=== PATIENT | female | born 1985 | race Caucasian/White ===

== ENCOUNTER 2022-12-20 17:32 | Emergency (ER) | payer OTHER, SELFPAY ==
[2022-12-20] VITALS (18 sets, daily range): BP systolic 107–121; BP diastolic 61–80; PULSE 78–105; RESP 22; TEMP 36.3; O2SAT 96–100; BMI 26.0
--- NOTE | 2022-12-20 17:38 | ED_ITS ---
HPI - General Adult General Chief complaint: Anxiety Stated complaint: unconscious Time Seen by Provider: 12/20/22 17:37 History of Present Illness HPI narrative: This 36-year-old female comes in hyperventilating and anxious. She does not describe any pain but feels funny tingling sensations all over. She states that she was helping her son who was climbing a tree and got stung by some bees. She became very anxious at this time and is hyperventilating. She states that she has had episodes of anxiety or panic like this in the past but this 1 is worse than the others. She takes sertraline and states that she took an extra tablet thinking that would help her. She states that she took an extra dose in the past when she was having anxiety symptoms. She does not take any other medications. Related Data Home Medications Medication Instructions Recorded Confirmed cetirizine 10 mg tablet 10 mg PO DAILY PRN 12/20/22 12/20/22 levothyroxine PO DAILY 12/20/22 multivitamin (Daily Multi-Vitamin 1 tab PO DAILY 12/20/22 12/20/22 tablet) Previous Rx's Medication Instructions Recorded lorazepam 0.5 mg tablet (Ativan) 0.5 mg PO BID PRN #10 tabs 12/20/22 Allergies Allergy/AdvReac Type Severity Reaction Status Date / Time No Known Drug Allergies Allergy Verified 12/20/22 17:44 Review of Systems Status of ROS: Reports: 10 or more systems reviewed and unremarkable except as noted in History and below Narrative: Constitutional: No fevers, no weight gain or loss. Eyes: No discharge. No vision changes. HENT: No congestion, no sore throat, no ear pain. Cardiovascular: No chest pain, no palpitations. Respiratory: No shortness of breath, no wheezes, no cough. Gastrointestinal: No abdominal pain, no vomiting, no diarrhea. Genitourinary: No dysuria, no hematuria. Musculoskeletal: Normal range of motion. Skin: No rashes, no pruritis. Neurological: No dizziness, weakness, sensory change, speech change. Endo/Heme/Allergies: No bruising or bleeding. No polydipsia. Pysch: no suicidality, no insomnia. She is very anxious. All other systems reviewed and are negative. [facility] Medical History (Updated 12/20/22 @ 19:32 by Andrey Pugh MD) Hypothyroid ?E03.9 - Hypothyroidism, unspecified (ICD-10) Anxiety ?F41.9 - Anxiety disorder, unspecified (ICD-10) Social History Smoking Status: Never smoker Do you use any of these nicotine containing products: None How often do you have a drink containing alcohol: never How often do you have six or more drinks on one occasion: Never AUDIT-C Alcohol total score: 0 Non-prescribed substance use: denies use Exam Narrative: Exam Narrative: Constitutional: Well-developed, well-nourished, no acute distress. HEENT: Normocephalic, atraumatic. Neck: Normal range of motion. Nontender. Supple. Heart: Regular. No murmurs. Tachycardia at 105 beats per minute. Intact distal pulses. Lungs: Clear to auscultation. No chest discomfort. No wheezes, rhonchi, or rales. Hyperventilating due to anxiety. Abdomen: Normal bowel sounds. Nontender. No rebound tenderness. Genitalia: Deferred. Back: No midline tenderness. Normal range of motion. Extremities: Normal range of motion. No injury. Skin: Intact. No rash. Warm. No erythema or pallor. Neurologic: No altered sensation. No weakness. Alert and oriented. Psychiatric: She is very anxious. Nursing notes and vitals signs are reviewed. Const: Vital Signs, click to edit/add: Vital Signs - 24 hr 12/20/22 17:38 12/20/22 17:47 12/20/22 17:48 Temperature 97.3 F L Pulse Rate 78 83 Pulse Rate [Pulse Oximeter] 105 H Respiratory Rate 22 Blood Pressure 120/67 Blood Pressure [Le ft Upper Arm] 121/80 Pulse Oximetry 100 100 97 Oxygen Delivery Me thod Room Air 12/20/22 18:00 12/20/22 18:02 12/20/22 18:15 Temperature Pulse Rate 92 93 90 Pulse Rate [Pulse Oximeter] Respiratory Rate Blood Pressure 110/73 Blood Pressure [Le ft Upper Arm] Pulse Oximetry 97 97 97 Oxygen Delivery Me thod 12/20/22 18:17 12/20/22 18:30 12/20/22 18:31 Temperature Pulse Rate 91 90 87 Pulse Rate [Pulse Oximeter] Respiratory Rate Blood Pressure 109/72 107/75 Blood Pressure [Le ft Upper Arm] Pulse Oximetry 97 98 98 Oxygen Delivery Me thod 12/20/22 18:45 12/20/22 18:46 12/20/22 18:47 Temperature Pulse Rate 91 84 91 Pulse Rate [Pulse Oximeter] Respiratory Rate Blood Pressure 107/68 Blood Pressure [Le ft Upper Arm] Pulse Oximetry 98 98 98 Oxygen Delivery Me thod 12/20/22 19:00 12/20/22 19:02 Temperature Pulse Rate 87 90 Pulse Rate [Pulse Oximeter] Respiratory Rate Blood Pressure 107/61 Blood Pressure [Le ft Upper Arm] Pulse Oximetry 98 99 Oxygen Delivery Me thod Course Vital Signs Vital signs: Initial Vital Signs Temperature 97.3 F L 12/20/22 17:38 Temperature Source Temporal Artery Scan 12/20/22 17:38 Pulse Rate 105 H 12/20/22 17:38 Respiratory Rate 22 12/20/22 17:38 Respiratory Effort Spontaneous, Labored 12/20/22 17:38 Respiratory Depth Normal 12/20/22 17:38 Blood Pressure 121/80 12/20/22 17:38 Blood Pressure Mean 93 12/20/22 17:38 Blood Pressure Position Sitting 12/20/22 17:38 Pulse Oximetry 100 12/20/22 17:38 Oxygen Delivery Method Room Air 12/20/22 17:38 Vital Signs Temperature 97.3 F L 12/20/22 17:38 Pulse Rate 105 H 12/20/22 17:38 Respiratory Rate 22 12/20/22 17:38 Blood Pressure 121/80 12/20/22 17:38 Pulse Oximetry 100 12/20/22 17:38 Oxygen Delivery Method Room Air 12/20/22 17:38 Temperature 97.3 F L 12/20/22 17:38 Pulse Rate 90 12/20/22 19:02 Respiratory Rate 22 12/20/22 17:38 Blood Pressure 107/61 12/20/22 19:02 Pulse Oximetry 99 12/20/22 19:02 Oxygen Delivery Method Room Air 12/20/22 17:38 Medical Decision Making MDM Narrative Medical decision making narrative: This patient comes in hyperventilating with anxiety. She arrives with reassuring vital signs. Her heart rate is a bit elevated. Her blood glucose is in normal range. An IV was established where she did receive Ativan 0.5 mg. This brought great relief to her symptoms. She feels back to normal at this time. Lab results are reassuring also. The patient is taking Zoloft and is encouraged to continue with this medication. I did provide a few tablets of Ativan with the understanding that we will not refill this medicine and that it can become addictive. Lab Data Labs: Lab Results 12/20/22 Range/Units 17:30 Sodium 138 (135-149) mmol/L Potassium 3.5 L (3.6-5.1) mmol/L Chloride 104 (96-114) mmol/L Carbon Dioxide 18 L (20-32) mmol/L Anion Gap 16 H (7-15) mEq/L BUN 13 (5-24) mg/dL Creatinine 0.6 (0.5-1.5) mg/dL Estimated Creat Clear 94.00 Estimated GFR 120 ml/min Glucose 109 (60-115) mg/dL Calcium 9.6 (8.4-10.6) mg/dL ECG Data Attestation: I personally reviewed and interpreted this ECG as follows: Interpretation: Sinus tachycardia a. Rate is 105 beats per minute. There are no specific ST or T-wave abnormalities. Discharge Plan Discharge Clinical Impression: Acute anxiety Patient Disposition: Home, Self-Care Condition: Improved Additional Instructions: Continue Zoloft as prescribed. Use Ativan sparingly but as needed for acute anxiety or panic symptoms. Follow-up with primary physician for ongoing management. Prescriptions: New lorazepam [Ativan] 0.5 mg tablet 0.5 mg PO BID PRNQty: 10 0RF No Action levothyroxine [Synthroid] PO DAILY cetirizine 10 mg tablet 10 mg PO DAILY PRN multivitamin [Daily Multi-Vitamin] Tablet 1 tab PO DAILY Follow Up/Referrals: Provider,Not a Local [Primary Care Provider] - Stand Alone Forms: [employer] Info Instructions
[2022-12-20] MEDS: LORazepam 2 MG/ML inj 0.5 MG IV (17:50)
[2022-12-20 18:21] LABS: Anion Gap 16 mEq/L (7-15); Blood Urea Nitrogen* 13 mg/dL (5-24); Calcium* 9.6 mg/dL (8.4-10.6); Carbon Dioxide* 18 mmol/L (20-32); Chloride* 104 mmol/L (96-114); Creatinine* 0.6 mg/dL (0.5-1.5); Estimated Glomerular Filt Rate 120 ml/min; Glucose* 109 mg/dL (60-115); Potassium* 3.5 mmol/L (3.6-5.1); Sodium* 138 mmol/L (135-149)
[2022-12-20 19:30] LABS: Basophils Absolute Auto 0.05 K/uL (0.00-0.30); Basophils Percent Auto 0.6 % (0.0-3.0); Eosinophils Percent Auto 1.2 % (0.0-7.0); Hematocrit 40.5 % (33.0-51.0); Hemoglobin* 13.6 gm/dL (12.0-16.0); Immature Granulocytes Abs Auto 0.04 K/uL (0.00-0.30); Immature Granulocytes Pct Auto 0.5 %; Mean Corpuscular HGB Conc 34 gm/dL (32-36); Mean Corpuscular Hemoglobin 27 pg (26-34); Mean Corpuscular Volume 81 fL (80-100); Monocytes Percent Auto 8.3 % (0.0-11.0); Neutrophils Percent Auto 42.4 % (42.0-72.0); Platelet Count* 241 K/uL (140-440); RDW Coefficient of Variation % 11.9 % (11.5-15.5); White Blood Count* 8.47 K/uL (4.50-11.00)
[2022-12-20 19:32] LABS: Slide Review Reflex No
== END 2022-12-20 19:44 | disposition home or self-care (01) ==
PROVIDERS: Emergency Provider Emergency Medicine Emergency Medical Services
DX: F41.9 Anxiety disorder, unspecified (principal)
CPT/HCPCS: 36415; 80048; 85025; 93005; 94761; 96374; 99284; J2060